=== PATIENT | male | born 1990 | race African-American/Black ===

== ENCOUNTER 2018-10-20 18:51 | Emergency (ER) | payer OTHER ==
[~2018-10-20] VITALS: Ht 175.3 cm; Wt 67.1 kg
[~2018-10-20 18:51] MED LIST: DOXYCYCLINE 10100 M1 PO; DOXYCYCLINE 10100 MG PO; NOHOMEMEDICATIONS; NORCO 5-325 TA1 EACH PO; NORFLEX100 MG PO; NORVASC10 MG PO
[2018-10-20 18:58] VITALS: BP 123/84
[2018-10-20] MEDS ORDERED: FLEXERIL PO (19:12)
== END 2018-10-20 19:30 | disposition home or self-care (01) ==
LOC: ER 18:51
DX: M54.2 Cervicalgia (principal); S10.96XA Insect bite of unspecified part of neck, initial encounter; S20.362A Insect bite (nonvenomous) of left front wall of thorax, initial encounter; I10 Essential (primary) hypertension; W57.XXXA Bitten or stung by nonvenomous insect and other nonvenomous arthropods, initial encounter; Y93.89 Activity, other specified; Y92.89 Other specified places as the place of occurrence of the external cause; Y99.8 Other external cause status

== ENCOUNTER 2018-12-28 14:37 | Emergency (ER) | payer OTHER ==
[~2018-12-28] VITALS: Ht 175.3 cm; Wt 67.1 kg
[~2018-12-28 14:37] MED LIST changes: +FLEXERIL PO
[2018-12-28] MEDS ORDERED: COZAAR 25 MG TA25 M1 PO (14:42)
[2018-12-28] MEDS ORDERED: IBUPROFEN 800800 MG PO (16:53)
[2018-12-28 17:05] VITALS: BP 190/108
== END 2018-12-28 17:05 | disposition home or self-care (01) ==
LOC: ER 14:37
DX: S43.102A Unspecified dislocation of left acromioclavicular joint, initial encounter (principal); I10 Essential (primary) hypertension; W18.39XA Other fall on same level, initial encounter; Y92.89 Other specified places as the place of occurrence of the external cause; Y93.61 Activity, american tackle football; Y99.8 Other external cause status

== ENCOUNTER 2020-02-09 11:37 | Emergency (ER) | payer OTHER ==
[~2020-02-09] VITALS: Ht 177.8 cm; Wt 71.2 kg
[~2020-02-09 11:37] MED LIST changes: +COZAAR 25 MG TA25 M1 PO; +IBUPROFEN 800800 MG PO
[2020-02-09] MEDS ORDERED: ERYTHROMYCIN E3.5 G3 OPHTHALMIC ×2 (12:55→13:21)
[2020-02-09] MEDS ORDERED: NORVASC 2.5 MG2.5 M1 PO (13:20)
[2020-02-09 13:28] VITALS: BP 137/87
== END 2020-02-09 13:29 | disposition home or self-care (01) ==
LOC: ER 11:37
DX: H10.11 Acute atopic conjunctivitis, right eye (principal); J30.9 Allergic rhinitis, unspecified; I10 Essential (primary) hypertension; Z79.899 Other long term (current) drug therapy; Z91.048 Other nonmedicinal substance allergy status

== ENCOUNTER 2020-09-28 12:33 | Emergency (ER) | payer OTHER ==
[~2020-09-28] VITALS: Ht 170.2 cm; Wt 63.5 kg
[~2020-09-28 12:33] MED LIST changes: +ERYTHROMYCIN E3.5 G3 OPHTHALMIC; +NORVASC 2.5 MG2.5 M1 PO
[2020-09-28] MEDS ORDERED: ZPAK PO (13:49)
[2020-09-28] MEDS ORDERED: COZAAR 25 MG TA25 M2 PO (13:51)
[2020-09-28] MEDS ORDERED: NORVASC 2.5 MG2.5 M1 PO (13:51)
[2020-09-28 14:23] VITALS: BP 193/103
== END 2020-09-28 14:23 | disposition home or self-care (01) ==
LOC: ER 12:33
DX: J18.9 Pneumonia, unspecified organism (principal); I10 Essential (primary) hypertension; Z79.899 Other long term (current) drug therapy; Z79.2 Long term (current) use of antibiotics

== ENCOUNTER 2020-10-07 15:31 | Emergency (ER) | payer OTHER ==
[~2020-10-07] VITALS: Ht 175.3 cm; Wt 66.7 kg
[~2020-10-07 15:31] MED LIST changes: +COZAAR 25 MG TA25 M2 PO; +ZPAK PO
[2020-10-07 15:45] VITALS: BP 157/109
[2020-10-07 16:41] LABS: HEMATOCRIT 38.6 % (42.0-52.0); HEMOGLOBIN 12.9 gm/dL (14.0-18.0); MCH 28.3 pg (26.0-34.0); MCHC 33.4 g/dL (28.0-37.0); MCV 84.7 fL (80.0-100.0); PLATELET COUNT 453 thou/uL (150-400); RBC 4.56 mil/uL (4.50-6.00); WBC 11.1 thou/uL (4.0-11.0)
[2020-10-07 16:50] LABS: CALCIUM 9.3 mg/dL (8.5-10.1); CREATININE 0.9 mg/dL (0.7-1.3); POTASSIUM 3.8 mmol/L (3.5-5.1)
[2020-10-07 16:55] LABS: ALBUMIN 2.5 g/dL (3.4-5.0); TOTAL BILIRUBIN 0.2 mg/dL (0.2-1.0); TOTAL PROTEIN 7.3 g/dL (6.4-8.2)
[2020-10-07 17:07] LABS: CHOLESTEROL 126 mg/dL (<200); HDL CHOLESTEROL 17 mg/dL (>40); LDL CHOLESTEROL 83 mg/dL (<100); TC:HDL 7.4 Ratio (Not establshd); TRIGLYCERIDE 134 mg/dL (<150); VLDL 27 mg/dL (<40)
[2020-10-07 17:37] LABS: ABSOLUTE NEUTROPHILS 8.8 thou/uL (1.4-8.2); ANISOCYTOSIS 1+; LARGE PLATELETS OCCASIONAL
[2020-10-07 17:47] LABS: FOLIC ACID 9.2 ng/mL (8.6-58.9)
[2020-10-07 20:11] VITALS: BP 146/108
--- NOTE | 2020-10-08 00:14 | NUR ---
TALKED WITH PT , HE DOES NOT WANT TO STAY, STATES HE IS UNCOMFORTABLE AND CANNOT SLEEP. HAVE ENCOURAGED HIM TO WAIT UNTIL AM AND HE DECLINES. IS ARRANGING RIDE
[2020-10-08 01:00] VITALS: BP 146/108
--- NOTE | 2020-10-08 01:00 | NUR ---
PATIENT DECLINED FURTHER VITAL SIGNS, INTERVENTIONS. SIGNED AMA PAPERWORK. IV DCD INTACT. GIVEN TRAMADOL FOR GENERALIZED PAIN THAT IS WORST IN NECK, BACK. EXPLAINED TEST RESULTS WILL BE CALLED TO PATIENT OR HE CAN CALL BACK TO HOSPITAL TO OBTAIN RESULTS.
[2020-10-08 06:06] LABS: HIV ANTIBODY Non Reactive (Non Reactive)
--- NOTE | 2020-10-08 07:20 | EKG ---
[place] [address] [facility] [place] [address] ELECTROCARDIOGRAM REPORT Name: JENIFER VELEZ Room #: DEP ISAAK Calvo#: [id number] Admission: 10/07/20 Attend Phys: Discharge: 10/08/20 Date of : [birth year] Report #: [id number] [facility] ED Test Date: 2020-10-07 Test Time: 15:42:14 Pat Name: JENIFER VELEZ Department: Room: 170 Gender: M Special Education Bus Driver: YANNA : 1990 Requested By: Boo Schneider Order Number: [id number] MD: Yair Alvarez Measurements Intervals [place] Rate: 136 P: 75 NV: 127 QRS: 91 QRSD: 79 T: 1 QT: 288 QTc: 434 Interpretive Statements Sinus tachycardia Left atrial enlargement Borderline right axis deviation Baseline wander in lead(s) V4,V5 No previous ECG available for comparison Electronically Signed On 10-08-2020 7:20:25 BIOMETRICS CONSULTANT by Yair Alvarez [email or web address] <ELECTRONICALLY SIGNED> By: Yair Alvarez MD, [facility] 10/08/20 0720 1542 1542 Yair Alvarez MD, FACC /EPI
== END 2020-10-08 00:43 | disposition left against medical advice (07) ==
LOC: ER 15:31 → EROBS 17:02 → ER 10-08 00:43
PROVIDERS: Emergency Medicine; Hospitalist
DX: J18.9 Pneumonia, unspecified organism (principal); Z20.828 Contact with and (suspected) exposure to other viral communicable diseases; F12.90 Cannabis use, unspecified, uncomplicated; I10 Essential (primary) hypertension; Z79.899 Other long term (current) drug therapy

== ENCOUNTER 2020-11-07 06:07 | Inpatient (IN) | payer OTHER ==
[~2020-11-07] VITALS: Ht 177.8 cm; Wt 66.7 kg
[2020-11-07] VITALS (13 sets, daily range): BP systolic 125–161; BP diastolic 90–119
[2020-11-07 06:56] LABS: HEMATOCRIT 41.2 % (42.0-52.0); HEMOGLOBIN 13.2 gm/dL (14.0-18.0); MCV 81.2 fL (80.0-100.0); PLATELET COUNT 605 thou/uL (150-400); RBC 5.07 mil/uL (4.50-6.00); RDW 16.3 % (10.5-14.5); WBC 11.4 thou/uL (4.0-11.0)
[2020-11-07 07:03] LABS: ANION GAP 13 mmol/L (7-16); BUN 7 mg/dL (7-18); CALCIUM 9.5 mg/dL (8.5-10.1); CHLORIDE 96 mmol/L (98-107); CO2 26 mmol/L (21-32); CREATININE 0.9 mg/dL (0.7-1.3); GLUCOSE 120 mg/dL (74-106); SODIUM 135 mmol/L (136-145)
[2020-11-07 07:13] LABS: ALBUMIN 3.2 g/dL (3.4-5.0); DIRECT BILIRUBIN < 0.1 mg/dL (<0.1-0.2); SGOT 58 U/L (15-37); SGPT 87 U/L (30-65); TOTAL BILIRUBIN 0.2 mg/dL (0.2-1.0); TOTAL PROTEIN 8.7 g/dL (6.4-8.2)
[2020-11-07 07:18] LABS: POTASSIUM 3.8 mmol/L (3.5-5.1)
[2020-11-07 07:20] LABS: TROPONIN-I 2.91 ng/mL (<0.06)
--- NOTE | 2020-11-07 07:41 | EKG ---
[place] [address] [employer] [facility] [place] [address] ELECTROCARDIOGRAM REPORT Name: JENIFER VELEZ Room #: REG ISAAK Calvo#: [id number] Admission: 11/07/20 Attend Phys: Discharge: Date of : [birth year] Report #: [id number] [facility] ED Test Date: 2020-11-07 Test Time: 06:18:18 Pat Name: JENIFER VELEZ Department: Room: Gender: Set O Type Operator: LEIGH : 1990 Requested By: Leonor Buitrgao Order Number: [id number] MD: Yair Alvarez Measurements Intervals [place] Rate: 81 P: 35 [place]: 129 QRS: 90 QRSD: 135 T: 11 QT: 386 QTc: 448 Interpretive Statements Sinus rhythm RBBB ST elevation, consider anterolateral injury Compared to ECG 10/07/2020 15:42:14 Left posterior fascicular block now present Right bundle-branch block now present ST (T wave) deviation now present Myocardial infarct finding now present Sinus tachycardia no longer present Atrial abnormality no longer present Electronically Signed On 11-07-2020 7:41:14 PLANNING ENGINEER by Yair Alvarez [email or web address] <ELECTRONICALLY SIGNED> By: Yair Alvarez MD, [facility] 11/07/20 0741 7 7 Yair Alvarez MD, [facility] /EPI
[2020-11-07 08:23] LABS: AMP/METHAMP Negative (Negative); BARBITURATES Negative (Negative); BENZODIAZEPINES Negative (Negative); COCAINE Negative (Negative); METHADONE Negative (Negative); OPIATES Negative (Negative); PCP Negative (Negative)
[2020-11-07 09:28] LABS: ABSOLUTE NEUTROPHILS 8.7 thou/uL (1.4-8.2); ANISOCYTOSIS 1+; ATYPICAL LYMPHS 1 %; METAMYELOCYTES 1 %; MYELOCYTES 1 %
--- NOTE | 2020-11-07 10:33 | EKG ---
[facility] [address] [place] [address] ELECTROCARDIOGRAM REPORT Name: JENIFER VELEZ Room #: 170-5 ADM IN M.R.#: [id number] Admission: 11/07/20 Attend Phys: Millicent Turner MD Discharge: Date of : [birth year] Report #: [id number] [facility] ED Test Date: 2020-11-07 Test Time: 07:29:34 Pat Name: JENIFER VELEZ Department: Room: 170 5 Gender: M Crew Truck Driver: HARDIK : 1990 Requested By: Ten Mcadams Order Number: [id number] MD: Ten Mcadams Measurements Intervals [place] Rate: 60 P: 40 [place]: 137 QRS: 80 QRSD: 132 T: 33 QT: 421 QTc: 421 Interpretive Statements Sinus rhythm Right bundle branch block ST elev, probable normal early repol pattern Compared to ECG 11/07/2020 06:18:18 ST (T wave) deviation still present Electronically Signed On 11-07-2020 10:33:10 WATER METER MECHANIC by Ten Mcadams [email or web address] <ELECTRONICALLY SIGNED> By: Ten Mcadams MD, [facility] 11/07/20 1033 8 8 Ten Mcadams MD, [facility] /EPI
--- NOTE | 2020-11-07 10:51 | CATHLAB ---
[facility] [place] [address] INVASIVE PROCEDURE REPORT Name: JENIFER VELEZ Room #: 219-P ADM IN M.R.#: [id number] Admission: 11/07/20 Attend Phys: Millicent Turner MD Discharge: Date of : [birth year] Report #: [id number] THIS REPORT FOR: cc: FAM - No family physician/PCP FAM - No family physician/PCP Ten Mcadams MD [facility] ~ APPROVED REPORT Study performed: 11/07/2020 08:27:20 Patient Details Patient Status: ED Room #: The patient is a 30 year-old male Event Personnel Ten Mcadams Sewer Pipe Cleaner, Mirta Torres RTR, TOOL AND MACHINE MAINTAINER Monitor, Lynda Weir RN RN, Margarito Madrid RTR Scrub Procedures Performed Art Access - R femoral artery* Left Heart Cath w/or w/o Coronaries 0426115 [facility] Place w/wo Plasty Single OM 040657 29192 Initial Mod Sed Same Phys/QHP Gr5y 746007 11318 Mod Sed Same Phys/QHP Ea 616123 Hemostasis w/ Mynx Indication Abnormal ECG, Non-STEMI (>6 hrs to = 12 hrs), Chest pain Procedure Narrative The patient was brought urgently to the Cardiac Catheterization Laboratory and was prepped and draped in a sterile manner. The Right Groin^ was infiltrated with 1% Lidocaine subcutaneous anesthesia. A PINNACLE 6FR Sheath #[id number] sheath was inserted into the RFA^. Coronary angiography was performed using coronary diagnostic catheters. The right coronary system was accessed and visualized with a JR4 catheter. The left coronary system was accessed and visualized with a JL4 AND JL4.5 catheter. The left ventricle was accessed and visualized with a ANGLED PIGTAIL catheter. Left ventricular/Aortic Valve gradient assessed via catheter pullback. Left ventriculogram was performed in 30 degree projection. Closure device was deployed with a 6 Fr MYNXGRIP 6/7F #[id number]. The patient tolerated the procedure well and there were no complications associated with the procedure. There was no hematoma. [facility] [address] [place] [address] INVASIVE PROCEDURE REPORT Name: [facility] Room #: 219-P [facility] IN .R.#: [id number] Admission: 11/07/20 Attend Phys: Millicent Turner, Discharge: Date of : [birth year] Report #: [id number] Intraoperative Conscious Sedation Sedation start time: 08:57 Case end Time: 10:19 Fentanyl 100 mcg Versed 2 mg Fluoro Time: 9.16 minutes Dose: DAP 6379.90 cGycm2 866 mGy Contrast Type and Amount: Omnipaque 350-295ml total Coronary Angiography The patient's coronary anatomy is co- dominant. Diagnostic Cath Left Main Short, cloacal left main, normal LAD Diffuse plaquing throughout the proximal and mid LAD (30-40%) Diagonal 1 Mild 20-30% diffuse plaquing in a large first diagonal branch Diagonal 2 Mild mid vessel plaquing in a moderate second diagonal branch Circumflex Codominant circumflex. Mild 10-20% distal plaquing OM1 20-30% proximal OM1 plaquing OM2 85-90% proximal OM 2 stenosis OM3 Mild 20-30% proximal and mid OM 3 plaquing Right Coronary Codominant right coronary with 20-30% scattered plaquing and diffuse ectasia Left Ventriculography The left ventricle is normal in size with normal contractility. The left ventricular ejection fraction is estimated to be 60%. Left ventricular wall motion abnormalities are not present. There is no mitral insufficiency. Hemodynamics The aortic pressure is 144/89 mmHg with a mean of 113 mmHg. The left ventricular pressure is 160/-1 mmHg with a mean of mmHg. The left ventricular end diastolic pressure is 17 mmHg. Pullback from the left ventricle to the aorta revealed no gradient across the aortic valve. PCI Technique Lesion Anticoagulation was achieved with Heparin, Integrilin. Patient was preloaded with Plavix. Percutaneous coronary intervention was performed on the second obtuse marginal branch segment. The lesion [facility] [address] [place] [address] INVASIVE PROCEDURE REPORT Name: JENIFER VELEZ Room #: 219-P ADM IN M.R.#: [id number] Admission: 11/07/20 Attend Phys: Millicent Turner, Discharge: Date of : [birth year] Report #: [id number] stenosis prior to intervention was 90% with MATTHEW 3 flow. A LAUNCHER 6FR EBU 4 #[id number] Guide Catheter was used to engage the circumflex ostium. A Luge Wire .014 x 182CM #[id number] Interventional Guidewire was used to cross the lesion. BALLOON DILATION A Balloon catheter Euphora RX 3.0 x 12 #[id number] was inserted and inflated up to 8.00atm for 40seconds. STENT DEPLOYMENT A drug-eluting stent RESOLUTE BELLA RX 3.0 X 12 #[id number] was inserted and inflated up to 18.00atm for 27seconds. POST STENT DEPLOYMENT BALLOON DILATION A Balloon catheter TREK NC RX 3.0 X 8 #[id number] was inserted and inflated up to 22.00atm for 30seconds. Additional Inflation: 22.00atm for 26seconds. Final angiography reveals 0 % stenosis with MATTHEW 3 flow. Conclusion 1. Normal global and regional left ventricular systolic function. EF 60% 2. Normal, cloacal left main 3. Diffuse 30-40% LAD plaquing and ectasia 4. Codominant circumflex with severe OM 2 branch stenosis, stented with a 3.0 x 12 mm Resolute medicated stent, post-dilated to 3.25mm 5. Mild diffuse ectasia and plaquing (20-30%) throughout a codominant right coronary Recommendations Daily ASA with Plavix for at least one year Aggressive Medical Therapy <ELECTRONICALLY SIGNED> By: Ten Mcadams MD, FACC 11/07/201050 50 50 Ten Mcadams MD, FACC /INF
--- NOTE | 2020-11-07 11:51 | NUR ---
RECEIVED PATIENT AT 1035 FROM MICROFILM CAMERA OPERATOR, PT RESTING, PT STATES HE IS DROWSY FROM PROCEDURE. VSS. RIGHT GROIN SITE SOFT, NON TENDER, NO HEMATOMA PRESENT. ASSESSMENT PERFORMED. WILL CONTINUE TO MONITOR.
[2020-11-07 11:56] LABS: % SATURATION 11 % (20-39); IRON 37 ug/dL (65-175); TIBC 334 ug/dL (250-450)
--- NOTE | 2020-11-07 17:15 | NUR ---
PT HAS BEEN RESTING THIS AFTERNOON WITH GIRLFRIEND AT BEDSIDE. VSS. WILL CONTINUE TO MONITOR PTS SINUS TACHYCARDIA. PT DOES NOT C/O PAIN. RIGHT GROIN SITE SOFT, MILD TENDERNESS, NO HEMATOMA PRESENT
[2020-11-08 00:30] VITALS: BP 130/91
[2020-11-08 02:05] LABS: GLYCOHEMOGLOBIN (HGB A1C) 5.6 % (4.8-5.6)
[2020-11-08 04:18] LABS: ABSOLUTE NEUTROPHILS 3.4 thou/uL (1.4-8.2); BASOPHILS 1.2 % (0.0-2.0); EOSINOPHILS 4.1 % (0.0-3.0); HEMATOCRIT 43.8 % (42.0-52.0); HEMOGLOBIN 13.9 gm/dL (14.0-18.0); LYMPHOCYTES 28.9 % (24.0-44.0); MCH 25.9 pg (26.0-34.0); MCHC 31.7 g/dL (28.0-37.0); MCV 81.7 fL (80.0-100.0); MONOCYTES 12.2 % (1.0-8.0); PLATELET COUNT 540 thou/uL (150-400); POLYS 53.6 % (36.0-66.0); RBC 5.36 mil/uL (4.50-6.00); WBC 6.3 thou/uL (4.0-11.0)
--- NOTE | 2020-11-08 04:58 | NUR ---
ASSUMED PT CARE AT 1900. VSS, PT A&0X4. PT HAD AN UNEVENTFUL NOC. RIGHT GROIN SITE CDI. PT SHOULD D/C THIS AM.
[2020-11-08 05:00] LABS: ALBUMIN 2.7 g/dL (3.4-5.0); CALCIUM 8.8 mg/dL (8.5-10.1); CREATININE 0.9 mg/dL (0.7-1.3); POTASSIUM 4.5 mmol/L (3.5-5.1); TOTAL BILIRUBIN 0.1 mg/dL (0.2-1.0); TOTAL PROTEIN 7.6 g/dL (6.4-8.2)
[2020-11-08 05:13] LABS: TROPONIN-I 12.58 ng/mL (<0.06)
[2020-11-08 05:26] LABS: CHOLESTEROL 180 mg/dL (<200); HDL CHOLESTEROL 43 mg/dL (>40); LDL CHOLESTEROL 123 mg/dL (<100); TC:HDL 4.2 Ratio (Not establshd); TRIGLYCERIDE 70 mg/dL (<150); VLDL 14 mg/dL (<40)
[2020-11-08 05:27] LABS: SERUM ASSESSMENT Clear
[2020-11-08 08:25] VITALS: BP 133/85
--- NOTE | 2020-11-08 09:49 | NUR ---
ASSUMED PT CARE AT 0700 THIS MORNING. PT RESTING. VSS. MEDICATION ADMINISTRATION AT 0800. ASSESSMENT UNCHANGED. WILL CONTINUE TO MONITOR PT.
--- NOTE | 2020-11-08 10:24 | EKG ---
[address] [employer] [place] [address] ELECTROCARDIOGRAM REPORT Name: JENIFER VELEZ Room #: 219-P ADM IN M.R.#: [id number] Admission: 11/07/20 Attend Phys: Millicent Turner MD Discharge: Date of : [birth year] Report #: [id number] [facility] Test Date: 2020-11-08 Test Time: 07:44:22 Pat Name: JENIFER VELEZ Department: Room: 219 P Gender: M Cart Attendant: MORE : 1990 Requested By: Ten Mcadams Order Number: [id number] : Yair Alvarez Measurements Intervals [place] Rate: 81 P: 47 [place]: 124 QRS: 83 QRSD: 127 T: 14 QT: 387 QTc: 450 Interpretive Statements Sinus rhythm Atrial premature complex Right bundle branch block Anterior infarct, acute Borderline ST elevation, anterior leads Compared to ECG 11/07/2020 07:29:34 Atrial premature complex(es) now present Myocardial infarct finding now present ST (T wave) deviation still present Electronically Signed On 11-08-2020 10:24:44 OPEN HEARTH HELPER by Yair Alvarez [email or web address] <ELECTRONICALLY SIGNED> By: Yair Alvarez MD, FACC 11/08/20 1024 0744 0744 Yair Alvarez MD, [facility] /EPI
[2020-11-08 12:15] VITALS: BP 115/86
[2020-11-08] MEDS ORDERED: METOPROLOL SUCC50 MG PO (12:19)
[2020-11-08] MEDS ORDERED: COZAAR100 MG PO (12:19)
[2020-11-08] MEDS ORDERED: LIPITOR40 MG PO (12:19)
[2020-11-08] MEDS ORDERED: ASPIRIN325 PO (12:19)
[2020-11-08] MEDS ORDERED: CLOPIDOGREL75 MG PO (12:19)
[2020-11-08 16:15] VITALS: BP 127/85
--- NOTE | 2020-11-08 17:55 | NUR ---
PT RESTING IN BED. VSS. PTS ASSESSMENT UNCHANGED. PTS HEARTRATE HAS IMPROVED THROUGHOUT THE DAY. WILL CONTINUE TO MONITOR.
[2020-11-08 21:08] VITALS: BP 118/84
[2020-11-09 04:22] VITALS: BP 126/88
--- NOTE | 2020-11-09 06:36 | NUR ---
ASSUMED CARE OF THE PATIENT AT 1900; AOX4; UP AD MAYANK/STEADY ON FEET; 2 DAYS POST OP STENT TO OM2 WITH RT GROIN SITE AND MYNX DRESSING IN PLACE C/D/I AND NO HEMATOMA NOTED ON EXAM; NO C/O CHEST PAIN; VSS; SR ON THE MONITOR; PLAN IS FOR PATIENT TO D/C TO HOME TODAY; WILL CONTINUE TO MONITOR AND FOLLOW POC.
[2020-11-09 08:00] VITALS: BP 128/93
--- NOTE | 2020-11-09 09:40 | EKG ---
[place] [address] [facility] [email or web address] [address] ELECTROCARDIOGRAM REPORT Name: JENIFER VELEZ Room #: 219-P ADM IN M.R.#: [id number] Admission: 11/07/20 Attend Phys: Millicent Turner MD Discharge: Date of : [birth year] Report #: [id number] [facility] Test Date: 2020-11-09 Test Time: 07:28:14 Pat Name: JENIFER VELEZ Department: Room: 219 P Gender: M Microbiology Laboratory Manager: KRISTA : 1990 Requested By: Ten Mcadams Order Number: [id number] MD: Ten Mcadams Measurements Intervals [place] Rate: 72 P: 20 OR: 118 QRS: 86 QRSD: 122 T: 28 QT: 385 QTc: 422 Interpretive Statements Sinus rhythm Borderline short OR interval Right bundle branch block Compared to ECG 11/08/2020 07:44:22 Left ventricular hypertrophy now present Atrial premature complex(es) no longer present Anterior T wave abnormality less pronounced Electronically Signed On 11-09-2020 9:40:02 RAIL WASHER by Ten Mcadams [email or web address] <ELECTRONICALLY SIGNED> By: Ten Mcadams MD, [facility] 11/09/20 0940 7 Ten Mcadams MD, [facility] /EPI
--- NOTE | 2020-11-09 10:46 | NUR ---
FAXED FACESHEET TO [facility] P [phone]; FAX [phone]
[2020-11-09 11:39] VITALS: BP 128/93
[2020-11-09 11:53] VITALS: BP 128/93
--- NOTE | 2020-11-09 16:19 | NUR ---
patient admits with CP. Plan home today. [facility] vouched for prescriptions approx $72. Patient with no pcp discussed importance to establish. he has no health insurance but is working. [facility] information given. no further needs.
--- NOTE | 2020-11-10 12:56 | HC ---
[facility] [place] [address] CONSULTATION Name: JENIFER VELEZ Room #: 219-P [facility] IN M.R.#: [id number] Admission: 11/07/20 Attend Phys: Millicent Turner MD Discharge: 11/09/20 Date of : [birth year] Report #: [id number] THIS REPORT FOR: cc: FAM - No family physician/PCP FAM - No family physician/PCP Ten Mcadams MD [facility] ~ DATE OF SERVICE: 11/07/2020 REASON FOR CONSULTATION: Chest pain. HISTORY OF PRESENT ILLNESS: The patient is a 30-year-old -Prydeinig with a history of hypertension. He reports last night smoking marijuana and developed midsternal chest pain. This pain persisted throughout the evening, and he presented to the Emergency Department where his initial EKG demonstrated a right bundle and a very prominent anterior T-wave inversion. An EKG from about a month earlier showed neither of these findings. He has had some improvement, although no relief in his pain with a bolus of heparin. Initial troponin is elevated at 2.91. He denies heart failure symptoms including orthopnea, paroxysmal nocturnal dyspnea, or lower extremity edema. No history of palpitations, near syncope or syncope. ALLERGIES: No known drug allergies. MEDICATIONS: Include amlodipine 10 mg daily, lisinopril 25 mg daily. PAST MEDICAL HISTORY: Medical records have been reviewed and include a history of pneumonia about a month ago and hypertension. 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 FAMILY HISTORY: Unremarkable for premature coronary artery disease. REVIEW OF SYSTEMS: All systems negative except as that noted above. PHYSICAL EXAMINATION: GENERAL: Pleasant gentleman who is alert, no distress. VITAL SIGNS: Blood pressure is 161/116, heart rate is 70 and regular. He is afebrile, 5 feet 9 inches tall, 147 pounds. HEENT: There are neither xanthelasma, subcutaneous xanthomata, oral mucosal or digital cyanosis or kyphoscoliosis present. CHEST: Clear to auscultation and percussion. CARDIAC: Regular rate and rhythm with normal S1, S2. Heart sounds are distant. ABDOMEN: Soft and nontender. EXTREMITIES: Without cyanosis, clubbing or edema. Radial pulses are 2+. [facility] [address] [place] [address] CONSULTATION Name: JENIFER VELEZ Room #: 219-P [facility] IN M.R.#: [id number] Admission: 11/07/20 Attend Phys: Millicent Turner MD Discharge: 11/09/20 Date of : [birth year] Report #: [id number] NEUROLOGIC: He is alert with a nonfocal exam. LABORATORY DATA: EKG as detailed above. Sodium 135, potassium 3.8, creatinine 0.9, glucose 120. LDL 83. White count 11.1, hemoglobin 13, hematocrit 41, platelet count 605. COVID testing remains pending. TSH 0.54. Chest x-ray is normal. IMPRESSION: 1. Non-Q-wave myocardial infarction with ongoing pain. 2. Hypertensive urgency. 3. Thrombocytopenia, etiology unknown. 4. Dyslipidemia. RECOMMENDATIONS: 1. Therapy with aspirin, heparin. 2. Aggressive blood pressure control. 3. Coronary angiography. The procedure was discussed in detail with the patient including possible percutaneous intervention. After a thorough discussion of the procedure, its risks and alternatives and after answering his questions, he is agreeable to proceeding. <ELECTRONICALLY SIGNED> By: Ten Mcadams MD, [facility] 11/10/20 1256 0841 0918 Ten Mcadams MD, FAC /nt
== END 2020-11-09 12:50 | disposition home or self-care (01) | DRG 247 ==
LOC: ER 06:07 → EROBS 08:25 → 2N 08:56
PROVIDERS: Emergency Medicine; Internal Medicine; ADMIT Internal Medicine; ATTEND Internal Medicine
PROC: 4A023N7 Measurement of Cardiac Sampling and Pressure, Left Heart, Percutaneous Approach (ICD-10-PCS; principal; 2020-11-07)
PROC: B2151ZZ Fluoroscopy of Left Heart using Low Osmolar Contrast (ICD-10-PCS; principal; 2020-11-07)
PROC: 027034Z Dilation of Coronary Artery, One Artery with Drug-eluting Intraluminal Device, Percutaneous Approach (ICD-10-PCS; principal; 2020-11-07)
PROC: B2111ZZ Fluoroscopy of Multiple Coronary Arteries using Low Osmolar Contrast (ICD-10-PCS; principal; 2020-11-07)
DX: I21.4 Non-ST elevation (NSTEMI) myocardial infarction (principal); I10 Essential (primary) hypertension; F12.90 Cannabis use, unspecified, uncomplicated; E78.5 Hyperlipidemia, unspecified; I16.0 Hypertensive urgency; D64.9 Anemia, unspecified; R73.9 Hyperglycemia, unspecified; D47.3 Essential (hemorrhagic) thrombocythemia; Z20.822 Contact with and (suspected) exposure to COVID-19
CPT/HCPCS: 10081